=== PATIENT | male | born 1975 ===

== ENCOUNTER 2025-01-28 04:00 | Emergency (ER) | payer OTHER ==
[~2025-01-28] VITALS: Ht 152.4 cm; Wt 72.6 kg
== END 2025-01-28 04:30 | disposition home or self-care (01) ==
LOC: ER 04:00
DX: T75.4XXA Electrocution, initial encounter (principal); Y35.831A Legal intervention involving a conducted energy device, law enforcement official injured, initial encounter; Z23 Encounter for immunization; Z59.89 Other problems related to housing and economic circumstances
CPT/HCPCS: 90471; 90715; 93005; 93010; 99283-25; A9270